=== PATIENT | male | born 1980 | race Caucasian/White ===

== ENCOUNTER 2022-08-16 18:45 | Emergency (ER) | payer OTHER, SELFPAY ==
[2022-08-16 18:46] VITALS: BP 118/84; PULSE 64; RESP 18; TEMP 35.8; O2SAT 97
[2022-08-16 19:41] VITALS: BP 132/89; BP 135/98; BP 149/88; PULSE 66; PULSE 69; PULSE 71
--- NOTE | 2022-08-16 19:50 | EKG12_ITS ---
Test Reason : CP Blood Pressure : / mmHG Vent. Rate : 058 BPM Atrial Rate : 058 BPM P-R Int : 140 ms QRS Dur : 096 ms QT Int : 430 ms P-R-T Axes : 013 033 036 degrees QTc Int : 422 ms Sinus bradycardia Otherwise normal ECG Confirmed by YANY ECKERT, STEF ([id number]), editorial manager BRITTANI DOWNING ([id number]) on 08/17/2022 12:59:01 P M Referred By: SHRUTHI Confirmed By:JAYNA SLADE MD
[2022-08-16 20:37] LABS: Absolute Lymphocyte Count 1.44 X10^3/uL (0.83-4.51); Absolute Neutrophil Count 8.8 X10^3/uL (2.0-7.7); Basophil# 0.02 X10^3/uL; Basophil% 0.2 % (0-1); Eosinophil# 0.06 X10^3/uL; Eosinophils% 0.5 % (0-5); Hematocrit 40.8 % (40-54); Hemoglobin 14.3 g/dL (13.0-16.5); Lymphocyte # 1.44 X10^3/ul (0.83-4.51); Lymphocyte % 12.8 % (19-41); Mean Corpuscular Hgb 30.8 pg (27.0-32.0); Mean Corpuscular Volume 87.7 fL (80-94); Mean Platelet Vol. 10.5 fl (6.2-12.0); Monocyte# 0.81 X10^3/uL; Monocyte% 7.2 % (0-10); NRBC Flagged by Analyzer 0 % (0-5); Neutrophil # 8.82 X10^3/uL (2.7-7.7); Neutrophil % 78.6 % (47-70); Platelet Count 173 K/mm3 (150-450); RBC Distribution Width CV 12.6 % (11.6-14.6); Red Blood Count 4.65 M/mm3 (4.6-6.2); White Blood Count 11.2 K/mm3 (4.4-11.0)
--- NOTE | 2022-08-16 20:42 | EDS_ITS ---
HPI History of Present Illness Chief Complaint: Syncope Narrative Narrative: 41-year-old male presents with episode of syncope. He states that he was getting ready go to his daughter's art show and he was at home. He just mowed the lawn. He got in the car and decided he would wear his back brace from his chiropractor. He states he supposed to wear this a couple hours a day and decided that he would wear it while he is riding a car. He states his head started to feel flush. He looked in the mirror and states his eyes were bulging and his face was red. He states he took the brace off and upon arriving to the school he stood up and he felt a little lightheaded. He made it into the school and sat down on the bench next to his and stated something is not right I do not feel right. He woke up then on the floor. His had lowered him down. He did not hit his head. He does not have headache, visual complaints, slurred speech. He states that when he woke up somebody give him some orange juice and he drank it. No seizure activity was noted. Patient states he did have some chest tightness in the upper chest prior to the event. He denies any cardiac history. He states other than seeing a chiropractor for his lower back he does not remember problems. He has been eating and drinking normally. Is making normal urine and stool. PFSH PFSH Medical History no medical history Allergy/AdvReac Type Severity Reaction Status Date / Time No Known Allergies Allergy Verified 08/16/22 18:49 Surgical History no surgical history Social History Smoking Status: Never smoker ROS ROS ED Constitutional Constitutional ED: Denies chills, fever(s) or sweats Eyes Eyes: Denies blurry vision or change in vision ENT ENT ED: Denies ear pain or sore throat Cardiovascular Cardiovascular: Reports chest pain and other Details: Syncope ; Denies palpitations or racing heartbeat Respiratory/Chest Respiratory/Chest: Denies cough, dyspnea or sputum Gastrointestinal Gastrointestinal: Denies abdominal pain, constipation, diarrhea, nausea or vomiting Genitourinary Genitourinary ED: Denies dysuria, hematuria or urinary frequency Musculoskeletal Musculoskeletal: Denies arthralgias, myalgias or neck pain Integumentary Denies abscess, Abrasions or rash Neurologic Neurologic: Denies headache(s), paresthesias or weakness Psychiatric Psychiatric: Denies anxiety, depression, suicidal ideation or suicidal thoughts Endocrine Endocrinology: Denies polydipsia or polyuria EXAM Physical Exam Const Vital Signs: 08/16/22 18:46 08/16/22 19:41 08/16/22 19:46 Temperature 96.5 F L Temperature Source Temporal Pulse Rate 64 Pulse Rate [Lying] 71 Pulse Rate [Sitting (for 1 minute prior to obtaining)] 66 Pulse Rate [Standing (for 1 minute prior to obtaining)] 69 Respiratory Rate 18 Respiratory Effort Normal Non-Labored Respiratory Pattern Normal Blood Pressure 118/84 H Blood Pressure [Lying] 135/98 H Blood Pressure [Sitting (for 1 minute prior to obtaining)] 149/88 H Blood Pressure [Standing (for 1 minute prior to obtaining)] 132/89 H Blood Pressure Mean 95 Blood Pressure Mean [Lying] 110 Blood Pressure Mean [Sitting (for 1 minute prior to obtaining)] 108 Blood Pressure Mean [Standing (for 1 minute prior to obtaining)] 103 Pulse Ox 97 Oxygen Delivery Method Room Air 08/16/22 20:43 08/16/22 21:12 Temperature Temperature Source Pulse Rate Pulse Rate [Lying] Pulse Rate [Sitting (for 1 minute prior to obtaining)] Pulse Rate [Standing (for 1 minute prior to obtaining)] Respiratory Rate Respiratory Effort Respiratory Pattern Blood Pressure 129/81 H Blood Pressure [Lying] Blood Pressure [Sitting (for 1 minute prior to obtaining)] Blood Pressure [Standing (for 1 minute prior to obtaining)] Blood Pressure Mean 97 Blood Pressure Mean [Lying] Blood Pressure Mean [Sitting (for 1 minute prior to obtaining)] Blood Pressure Mean [Standing (for 1 minute prior to obtaining)] Pulse Ox 97 Oxygen Delivery Method Room Air Positive well nourished General Appearance ED: NAD; Negative for pallor HEENT Reports moist mucous membranes Eyes PERRL and EOMs intact bilaterally Neck no lymphadenopathy Chest Wall inspection of chest normal and palpation of chest normal Resp normal respiratory effort and clear to auscultation bilaterally Auscultation: Negative for rales, rhonchi or wheezes Cardio regular rate, regular rhythm and no murmurs Extremity normal to inspection Neuro oriented x3 and CN's II-XII intact bilaterally Sensorium / Orientation: alert Motor Exam: strength 5/5 throughout Psych mental status grossly normal Skin no rashes or lesions noted General Skin Exam: Negative for jaundice or pallor MDM MDM MDM Narrative Medical decision making narrative: Patient presenting with syncope and chest tightness prior to the syncope. He states he feels like he is at his baseline currently. Other than syncope is differential also includes ACS, pneumonia, dysrhythmia, dehydration, electrolyte abnormalities. CBC to assess white blood cell count, hemoglobin, platelets, BMP to assess renal function, electrolytes, glucose, anion gap. High-sensitivity troponin and EKG were as well as chest x-ray to evaluate for cardiac aspect. Orthostatic vital signs were obtained and are normal. CBC shows a white blood cell count 11.2, hemoglobin 14.3, platelets 173. Renal function electrolytes within normal limits. High-sensitivity troponin initially 6. Delta troponin is 7. There is no significant interval change. Is unclear the etiology of the patient's fainting episode but I do not have any abnormalities here. I do think he can be discharged home. He is given follow-up with Dr. Castro as an outpatient. Return precautions were discussed. Impression: 1. Chest pain 2. Syncope Lab Data Attestation: I reviewed the patient's lab results. Labs: Laboratory Results - last 24 hr 08/16/22 08/16/22 08/16/22 20:15 20:15 22:51 WBC 11.2 H RBC 4.65 Hgb 14.3 Hct 40.8 MCV 87.7 MCH 30.8 MCHC 35.0 RDW Std Deviation 40.0 RDW Coeff of Peter 12.6 Plt Count 173 MPV 10.5 Immature Gran % (Auto) 0.700 Neut % (Auto) 78.6 H Lymph % (Auto) 12.8 L [place] % (Auto) 7.2 Eos % (Auto) 0.5 Baso % (Auto) 0.2 Absolute Neuts (auto) 8.8 H Absolute Lymphs (auto) 1.44 Nucleated RBC % 0 Sodium 141 Potassium 3.8 Chloride 106 Carbon Dioxide 28.0 Anion Gap 7 BUN 18 Creatinine 1.16 Est GFR (MDRD) Af Amer 90 Est GFR (MDRD) Non-Af 74 BUN/Creatinine Ratio 15.5 Glucose 134 H Calcium 9.1 Troponin I High Sens 6 7 Radiography Diagnostic Testing: Clinical Impression(s) from Imaging Studies Chest X-Ray 08/16/22 20:46 IMPRESSION: No acute cardiopulmonary disease. Electronically Signed: Jesús Aldridge MD at 21:15 EDT , Discharge Plan Triage Chief Complaint: Syncope ED Provider: Dario Rockwell Dx/Rx/DC Orders Instructions: ED Chest Pain, Noncardiac, ED Fainting, Uncertain Cause Primary Care Provider: Care Physician,No Primary Referrals: Booker Castro MD [Med Staff - Medical Records Coordinator] - 3-5 Days Care Physician,No Primary [Primary Care Provider] - Disposition Disposition: Home, Self Care
[2022-08-16 20:43] VITALS: O2SAT 97
--- NOTE | 2022-08-16 20:46 | RAD_ITS ---
INDICATION: chest pain/SYNCOPE EXAMINATION/TECHNIQUE: X-RAY - XR Chest 1 View COMPARISON: None. FINDINGS: AP view, lordotic technique. LINES/DEVICES: None. LUNGS: No consolidation, edema or effusion. No pneumothorax. MEDIASTINUM AND CARDIOVASCULAR STRUCTURES: Cardiac silhouette not enlarged. Central airways and mediastinal contour are unremarkable. BONES AND SOFT TISSUES: Unremarkable for age. RAD/Chest 1 View (Portable) IMPRESSION: No acute cardiopulmonary disease. Electronically Signed: Jesús Aldridge MD at 21:15 EDT ,
[2022-08-16 20:56] LABS: Anion Gap 7 (5-15); BUN 18 mg/dL (7-18); BUN/Creat Ratio 15.5 RATIO (10-20); Calcium,Total 9.1 mg/dL (8.5-10.1); Chloride 106 mmol/L (98-107); Creatinine, Serum 1.16 mg/dL (0.70-1.30); EST Glomerular Filtration Rate 74 mL/min (>60); Est Glom Filt Rate - Afr Amer 90 mL/min (>60); Glucose 134 mg/dL (74-106); Potassium 3.8 mmol/L (3.5-5.1); Sodium Level 141 mmol/L (136-145); Troponin-I HS (w/2H Reflex) 6 pg/mL (3.0-78.0)
[2022-08-16 21:12] VITALS: BP 129/81
[2022-08-16 23:20] LABS: Troponin-I HS 7 pg/mL (3.0-78.0)
[2022-08-16 23:42] VITALS: BP 137/86; PULSE 62; RESP 15; O2SAT 98
== END 2022-08-16 23:42 | disposition home or self-care (01) ==
PROVIDERS: Emergency Provider Student in an Organized Health Care Education/Training Program; Visit Provider Student in an Organized Health Care Education/Training Program
DX: R07.9 Chest pain, unspecified (principal); R55 Syncope and collapse
CPT/HCPCS: 71045; 80048; 84484; 85025; 93005; 99285; A4216